=== PATIENT | male | born 1935 | race Caucasian/White ===

== ENCOUNTER 2018-01-18 01:53 | Inpatient (IN) | payer MEDICARE ==
[~2018-01-18] VITALS: Ht 162.6 cm; Wt 63.5 kg
[2018-01-18 02:10] VITALS: BP 154/75
--- NOTE | 2018-01-18 02:10 | NUR ---
GPS-RN ADMITTED A 82-Y/O MALE, ADMITTED FROM [facility]. PT IS ON 5150 HOLD FOR DTS AND GD. PER HOLD PATIENT REPORTS INCREASED FEELINGS OF ANXIETY AND DEPRESSION RELATED TO INTERPERSONAL PROBLEMS. PATIENT VERBALIZES SUICIDAL THOUGHTS BUT WILL NOT DISCLOSE A PLAN. PATIENT STATED "I HAVE NOTHING TO LIVE FOR, I WOULD RATHER BE ". UPON FACE TO FACE ASSESSMENT, PATIENT APPEARS TO BE ALERT, ORIENTED X4, DEPRESSED. DENIES SI/HI AT THIS TIME. NO ACUTE DISTRESS NOTED. INCONTINENT OF BOWEL AND BLADDER. NO COMPLAIN OF PAIN OR DISCOMFORT. AMBULATORY WITH ASSISTIVE DEVICE. BELONGINGS INVENTORIED AND CHECKED FOR CONTRABAND. REVIEWED PATIENT'S RIGHTS AND VERBALIZED UNDERSTANDING. PATIENT IS UNDER THE PSYCHIATRIC CARE OF DR. REYNA, ORDERS OBTAINED, AND UNDER THE MEDICAL CARE OF DR. LAMBERT, BOTH DOCTORS ARE AWARE OF THE ADMISSION. SKIN BODY ASSESSMENT DONE. MRSA SCREENING DONE. BED LOCKED AND PLACED IN LOWEST POSITION. ROOM SAFETY CHECKED. FALL PRECAUTIONS MAINTAINED. WILL CONTINUE TO MONITOR Q15MIN ROUNDS FOR SAFETY AND BEHAVIOR.
[2018-01-18] MEDS ORDERED: MAGNESIUM HYDROXIDE 30 ML UDC PO PRN (02:30)
[2018-01-18] MEDS ORDERED: ACETAMINOPHEN 325 MG TABLET PO PRN (02:30)
[2018-01-18] MEDS ORDERED: LORAZEPAM 0.5 MG TABLET PO PRN (02:30)
[2018-01-18] MEDS: TEMAZEPAM 7.5 MG CAPSULE PO PRN (02:45)
[2018-01-18] MEDS ORDERED: PSYL1PAC8 PO (05:45)
[2018-01-18] MEDS ORDERED: MELA5TAB PO (05:45)
[2018-01-18 08:00] VITALS: BP 176/85
[2018-01-18] MEDS ORDERED: hydrALAZINE HCL 25 MG TABLET PO PRN (11:30)
--- NOTE | 2018-01-18 14:55 | NUR ---
SAVANNAH attempted to contact pts son Nghia [phone] to discuss discharge plan but was unable to reach him and left a voicemail for callback.
--- NOTE | 2018-01-18 14:58 | NUR ---
INITIAL DISCHARGE PLAN: Patient wishes to be discharged home to [address], [address] but is uncertain if pts son will accept him back. SW attempted to contact pts son Nghia [phone] to discuss discharge plan but was unable to reach him and left a voicemail for callback. SAVANNAH will help form a safe and proper discharge in collaboration with MD and pts son.
--- NOTE | 2018-01-18 15:02 | NUR ---
Pts son Nghia [phone] contacted SW to discuss discharge plan and his concerns with pts mental health and substance use. Pts son reported that in the past month pt has attempted suicide twice and states that pts mental state in getting worse and does not trust him home alone. Pts son is currently looking for long-term placement for pt. Pts sons reported that his impression is that pt wants to truly kill himself. Pts son reports that pts alcohol consumption increases his suicide thoughts and he is not compliant with medication. Pts son states that pt goes from high to lows he goes from being really happy to wanting to kill himself. Pts son has asked SW to help place pt in a facility as he cannot return home. SW will help form a safe and proper discharge in collaboration with .
[2018-01-18 16:00] VITALS: BP 142/69
[2018-01-18 20:18] VITALS: BP 153/78
[2018-01-18] MEDS: MIRTAZAPINE 15 MG TABLET PO SCH (21:13)
[2018-01-19 00:13] LABS: APPEARANCE,URINE CLEAR (CLEAR); BILIRUBIN,URINE NEGATIVE (NEGATIVE); BLOOD, URINE NEGATIVE Ery/uL (NEGATIVE); COLOR,URINE YELLOW (YELLOW); KETONES,URINE NEGATIVE (NEGATIVE); LEUKOCYTE ESTERASE ,URINE NEGATIVE (NEGATIVE); NITRITE, URINE NEGATIVE (NEGATIVE); PROTEIN,URINE NEGATIVE (NEGATIVE); UGLUCOSE TRACE mg/dL (NEGATIVE); UROBILINOGEN,URINE 0.2 EU/dL (0.2)
[2018-01-19 00:19] LABS: BACTERIA,URINE None seen /HPF (None Seen); RBC,URINE NONE SEEN /HPF (0-2); SQUAMOUS EPITHELIAL CELL,UR Few /HPF (None Seen); WBC,URINE 0-2 /HPF (0-3)
[2018-01-19] MEDS: TEMAZEPAM 7.5 MG CAPSULE PO PRN (01:37)
[2018-01-19 08:00] VITALS: BP 129/65
[2018-01-19] MEDS: CARBAMAZEPINE 200 MG TABLET PO SCH ×2 (09:21→16:47)
[2018-01-19] MEDS: RIVASTIGMINE TARTRATE 1.5 MG CAPSULE PO SCH ×2 (09:21→16:47)
[2018-01-19 10:45] LABS: BASOPHILS % (AUTO) 0.9 % (0.0-2.0); EOSINOPHILS % (AUTO) 6.8 % (0.0-6.0); HEMATOCRIT 40 % (39-51); HEMOGLOBIN 13.8 g/dL (13.5-17.5); LYMPHOCYTES # (AUTO) 0.8 /CMM (0.8-4.8); LYMPHOCYTES % (AUTO) 27.2 % (20.0-44.0); MEAN CORPUSCULAR HEMOGLOBIN 32 PG (26.0-33.0); MEAN CORPUSCULAR HGB CONC 34 g/dl (31.0-36.0); MEAN CORPUSCULAR VOLUME 93 fL (80-96); MONOCYTES # (AUTO) 0.4 /CMM (0.1-1.30); MONOCYTES % (AUTO) 12.9 % (2.0-12.0); NEUTROPHILS # (AUTO) 1.6 /CMM (1.8-8.9); NEUTROPHILS % (AUTO) 52.2 % (43.0-81.0); PLATELET COUNT (AUTO) 152 /CMM (150-450); RDW COEFFICIENT OF VARIATION 13.2 (11.5-15.0); RED BLOOD CELL COUNT(AUTO) 4.34 MIL/uL (4.5-6.0); WHITE BLOOD COUNT (AUTO) 3.1 K/uL (4.3-11.0)
[2018-01-19 11:07] LABS: ALANINE AMINOTRANSFERASE 67 U/L (12-78); ALBUMIN 3.1 g/dL (3.4-5.0); ALKALINE PHOSPHATASE 63 U/L (46-116); ASPARTATE AMINOTRANSFERASE 46 U/L (15-37); BILIRUBIN,TOTAL 0.6 mg/dL (0.2-1.0); CALCIUM, SERUM 8.7 mg/dL (8.5-10.1); CARBON DIOXIDE 24 mmol/L (21-32); CHLORIDE 112 mmol/L (98-107); CREATININE 1.1 mg/dL (0.6-1.3); GLUCOSE 144 mg/dL (74-106); POTASSIUM 3.5 mmol/L (3.5-5.1); SODIUM SERUM 145 mmol/L (136-145); TOTAL PROTEIN, SERUM 5.9 g/dL (6.4-8.2); UREA NITROGEN, BLOOD 10 mg/dL (7-18)
[2018-01-19 11:10] LABS: THYROID STIMULATING HORMONE 4.831 uIU/mL (0.358-3.74)
[2018-01-19 11:16] LABS: CHOLESTEROL 144 mg/dL (<200); HDL CHOLESTEROL 58 mg/dL (40-60); LDL 79 mg/dL (0-99); TRIGLYCERIDES 92 mg/dL (30-150)
[2018-01-19 16:00] VITALS: BP 155/79
[2018-01-19 20:03] VITALS: BP 153/78
[2018-01-19] MEDS: MIRTAZAPINE 15 MG TABLET PO SCH (21:25)
[2018-01-19 22:32] VITALS: BP 140/72
[2018-01-20] MEDS ORDERED: Z GUARD REMEDY 4 OZ OINT TP PRN
[2018-01-20 08:18] VITALS: BP 139/68
[2018-01-20] MEDS: CARBAMAZEPINE 200 MG TABLET PO SCH ×2 (08:28→16:06)
[2018-01-20] MEDS: RIVASTIGMINE TARTRATE 1.5 MG CAPSULE PO SCH ×2 (08:28→16:06)
--- NOTE | 2018-01-20 08:29 | NUR ---
SAVANNAH faxed SNF referral to Yeimy admission coordinator at [facility] Address: [address], [place] [address] for review.
[2018-01-20] MEDS: Z GUARD REMEDY 4 OZ OINT TP SCH (09:43)
[2018-01-20 16:18] VITALS: BP 139/76
[2018-01-20 20:00] VITALS: BP 114/67
[2018-01-20] MEDS: MIRTAZAPINE 15 MG TABLET PO SCH (21:59)
--- NOTE | 2018-01-21 06:23 | NUR ---
GPS/RN PATIENT IS STILL SLEEPING AT THIS TIME, CALM AND COMFORTABLE, NO SIGNS OF DISTRESS NOTED, ALL NEEDS ATTENDED AT THIS TIME. WILL CONTINUE TO MONITOR.
[2018-01-21 08:00] VITALS: BP 110/61
--- NOTE | 2018-01-21 08:25 | NUR ---
Pts son/nephew Nghia [phone] came to visit pt during none visiting hours and came with a notarizer to have divorce papers signed by pt. SW explained to pts son/nephew that due to pt being on a legal hold for grave disability legally he is unable to sign any forms until he is out of the hospital. Pts son/nephew understood.
[2018-01-21] MEDS: RIVASTIGMINE TARTRATE 1.5 MG CAPSULE PO SCH ×2 (08:59→17:35)
[2018-01-21] MEDS: CARBAMAZEPINE 200 MG TABLET PO SCH ×2 (08:59→17:35)
[2018-01-21] MEDS: Z GUARD REMEDY 4 OZ OINT TP SCH (09:00)
--- NOTE | 2018-01-21 10:31 | NUR ---
Yeimy admission coordinator at [facility] Address: [address] [place] [address] contacted SW to inform her pt could not be accepted to facility due to pts history of suicidal ideations.
--- NOTE | 2018-01-21 10:32 | NUR ---
SAVANNAH faxed referral to Sarai construction project coordinator at [facility] Address: [address], [place], [place] [address] fax: [phone] for review.
--- NOTE | 2018-01-21 13:13 | NUR ---
Sarai children's program coordinator at [facility] Address: [address], [place] [address] contacted SW to inform her that pt was not accepted to their facility.
[2018-01-21 16:00] VITALS: BP 154/87
[2018-01-21 20:00] VITALS: BP 143/76
[2018-01-21] MEDS: MIRTAZAPINE 15 MG TABLET PO SCH (22:04)
[2018-01-22 08:00] VITALS: BP 132/75
[2018-01-22] MEDS: CARBAMAZEPINE 200 MG TABLET PO SCH ×2 (08:11→16:27)
[2018-01-22] MEDS: RIVASTIGMINE TARTRATE 1.5 MG CAPSULE PO SCH ×2 (08:11→16:27)
[2018-01-22] MEDS: Z GUARD REMEDY 4 OZ OINT TP SCH (09:56)
[2018-01-22 16:00] VITALS: BP 130/59
[2018-01-22 20:00] VITALS: BP_SYST 113; BP_SYST 124; BP_DIAS 68; BP_DIAS 70
[2018-01-22] MEDS: MIRTAZAPINE 15 MG TABLET PO SCH (21:16)
[2018-01-23] MEDS: RIVASTIGMINE TARTRATE 1.5 MG CAPSULE PO SCH ×2 (07:58→16:52)
[2018-01-23] MEDS: CARBAMAZEPINE 200 MG TABLET PO SCH ×2 (07:58→16:52)
[2018-01-23 08:00] VITALS: BP 136/76
[2018-01-23] MEDS: Z GUARD REMEDY 4 OZ OINT TP SCH (11:48)
[2018-01-23 16:00] VITALS: BP 141/78
[2018-01-23 19:57] VITALS: BP 132/76
[2018-01-23] MEDS: MIRTAZAPINE 15 MG TABLET PO SCH (21:31)
[2018-01-24] MEDS: TEMAZEPAM 7.5 MG CAPSULE PO PRN (00:21)
[2018-01-24 03:11] VITALS: BP 123/74
[2018-01-24 08:00] VITALS: BP 147/80
--- NOTE | 2018-01-24 09:12 | NUR ---
SAVANNAH faxed SNF referral to Mark Screen Repairer Crusher at [facility] Address: [address] [place] [address] for review.
[2018-01-24] MEDS: RIVASTIGMINE TARTRATE 1.5 MG CAPSULE PO SCH ×2 (09:19→16:43)
[2018-01-24] MEDS: CARBAMAZEPINE 200 MG TABLET PO SCH ×2 (09:19→16:43)
[2018-01-24] MEDS: Z GUARD REMEDY 4 OZ OINT TP SCH (09:47)
--- NOTE | 2018-01-24 09:48 | NUR ---
Mark Renovator Machine Operator at [facility] Address: [address] [place] [address] contacted SW to inform her pt was not accepted to their facility due to pt having no skilled needs. Mark has forwarded referral to [facility] ([facility]) [address] [address] for possible admission.
--- NOTE | 2018-01-24 11:30 | NUR ---
SW was contacted by Billie genetic coordinator at [facility] ([facility]) [address] [facility] [address] to state pt has been accepted to their facility.
--- NOTE | 2018-01-24 11:46 | NUR ---
WOUND CARE CONSULT: PT PRESENTS WITH RASH TO PERINEAL/GROIN AREAS, PRESENT ON ADMISSION. RECOMMENDATIONS MADE FOR SKIN PROTECTION AND CARE. DISCUSSED WITH NURSING STAFF. WILL SEE PRN. BAUTISTA IN AGREEMENT WITH PLAN OF CARE. CURRENT JSOTIN SCORE IS 16. Addendum: 01/24/18 at 1147 by EVA WARD WNDNU Amended: Links added.
[2018-01-24 16:00] VITALS: BP 145/72
[2018-01-24] MEDS: CLOTRIMAZOLE 1% 15 GM TUBE TP SCH (17:33)
[2018-01-24 20:53] VITALS: BP 141/68
[2018-01-24] MEDS: MIRTAZAPINE 15 MG TABLET PO SCH (21:31)
[2018-01-25 08:00] VITALS: BP 138/71
[2018-01-25] MEDS: CARBAMAZEPINE 200 MG TABLET PO SCH ×2 (10:38→17:35)
[2018-01-25] MEDS: RIVASTIGMINE TARTRATE 1.5 MG CAPSULE PO SCH ×2 (10:38→17:35)
[2018-01-25] MEDS: CLOTRIMAZOLE 1% 15 GM TUBE TP SCH ×2 (10:39→17:35)
[2018-01-25] MEDS: Z GUARD REMEDY 4 OZ OINT TP SCH (10:39)
[2018-01-25] MEDS: MAG HYDROX/AL HYDROX/SIMETH 30 ML UDC PO PRN ×2 (14:21→19:23)
[2018-01-25 16:00] VITALS: BP 123/55
--- NOTE | 2018-01-25 16:40 | NUR ---
68 year old male pt. adm. to [id number].alert and oriented x4,initially requesting norco for pain. Addendum: 01/25/18 at 1937 by JAZ BRANDT RN entry on wrong pt.
--- NOTE | 2018-01-25 18:00 | NUR ---
med recon nurse has put in home meds and call out to dr. lance to review. Addendum: 01/25/18 at 1937 by JAZ BRANDT RN entry on wrong pt.
--- NOTE | 2018-01-25 18:00 | NUR ---
pt. relates after lunch vomited sm. amt.states this has been going on for few days-says he has a blockage.given maalox.
--- NOTE | 2018-01-25 18:30 | NUR ---
skin assessment done and few scars on back from former back surgeries.mrsa smear done and photo of face done.pt. states when questioned is still a little suicidal. Addendum: 01/25/18 at 1936 by JAZ BRANDT RN entry on wrong pt.
--- NOTE | 2018-01-25 19:10 | NUR ---
endorsed to gillian. deyanira pt. needs maalox again.states he ate sm. amt. of dinner and vomited again.
--- NOTE | 2018-01-25 19:40 | NUR ---
GPS-RN REPORT GIVEN TO MANUEL FOR CONTINUITY OF CARE.
--- NOTE | 2018-01-25 19:45 | NUR ---
GPS RN NOTE, RECEIVED PATIENT AWAKE AND IN BED, NO S/S OR COMPLAINTS OF PAIN AT THIS TIME. PATIENT IS DISPLAYING NO S/S OF APPARENT DISTRESS AT THIS TIME. PATIENT BREATHING IS UNLABORED WITH EQUAL RISE AND FALL OF THE CHEST. PATIENT IS ALERT AND ORIENTED X 3 ON ROOM AIR WITH A SPO2 99 %. PATIENT IS MED COMPLIANT, CALM, COOPERATIVE, AND AMBULATES WITH WALKER INDEPENDENTLY. PATIENT DENIES SUICIDE IDEATIONS AND HOMICIDAL IDEATIONS AT THIS TIME. PATIENT ASSISTED WITH TURNING AND REPOSITIONING Q2HR AND PRN FOR COMFORT AND CIRCULATION. PATIENT HAS NO NEEDS AT THIS TIME. PATIENT EDUCATED ON THE USE OF THE CALL CASTRO. PATIENT BED SIDE RAILS UP X2 FOR SAFETY, BED IS LOCKED, AND LOW. WILL CONTINUE TO MONITOR AND MAINTAIN SAFETY Q15MIN WITH THE HELP OF STAFF.
[2018-01-25 20:31] VITALS: BP 151/71
[2018-01-25] MEDS: MIRTAZAPINE 15 MG TABLET PO SCH (21:02)
[2018-01-26 08:00] VITALS: BP 125/73
[2018-01-26] MEDS: Z GUARD REMEDY 4 OZ OINT TP SCH (10:16)
[2018-01-26] MEDS: CLOTRIMAZOLE 1% 15 GM TUBE TP SCH (10:16)
[2018-01-26] MEDS: RIVASTIGMINE TARTRATE 1.5 MG CAPSULE PO SCH (10:16)
[2018-01-26] MEDS: CARBAMAZEPINE 200 MG TABLET PO SCH (10:16)
--- NOTE | 2018-01-26 13:44 | NUR ---
DISCHARGE NOTE: Pt was discharged at [address] [facility] [facility] (SNF) [address] [address] via [facility] ambulance trip #[id number]. Pts nephew Nghia [phone] was notified and agreed with discharge plan. Pts mood was pleasant with congruent affect. Pt denied suicidal/homicidal ideations and denied visual/auditory hallucinations. Patient was provided referrals to address his alcohol use. Patient was referred to [facility]: [address] [place] [address] and was encouraged to report for an Intake on January before 5:00pm. Additional resources included [facility] [address] [place] [address] and [facility] [address] [place] [address] . Pt will be under the care of Psychiatrist: Dr. Hans Freeman [address] [place] [address] [phone] and Aircraft Part Assembler: Dr. Ángel Rodrigez [address] [phone] Phone 1: . The multidisciplinary exitcare form was done, printed, signed, and given to the patient.
--- NOTE | 2018-01-26 14:00 | NUR ---
DISCHARGE GPS PT. WAS DISCHARGED TO [facility] IN STABLE CONDITION BY AMBULANCE. REPORT WAS GIVEN TO KATY NURSE VIA PHONE. PT. IS A&OX3-4. DISCHARGE INSTRUCTIONS WERE GIVEN WITH EDUCATION AND PT. VERBALIZED UNDERSTANDING. BELONGINGS LIST WAS CHECKED AND SIGNED. PRESCRIPTION WAS GIVEN TO PT. WITH EDUCATION AND PT. VERBALIZED UNDERSTANDING. REPORT WAS GIVEN TO AMBULANCE, AND DISCHARGE PACKET. PT.'S NEPHEW WAS NOTIFIED OF PT. TRANSFER TODAY.
== END 2018-01-26 14:00 | DRG 885 ==
LOC: GPS 01:53
PROVIDERS: ADMIT Psychiatry & Neurology Psychiatry; ATTEND Psychiatry & Neurology Psychiatry
DX: F31.30 Bipolar disorder, current episode depressed, mild or moderate severity, unspecified (principal); F29 Unspecified psychosis not due to a substance or known physiological condition; E78.5 Hyperlipidemia, unspecified; F10.20 Alcohol dependence, uncomplicated; F41.9 Anxiety disorder, unspecified; F17.200 Nicotine dependence, unspecified, uncomplicated
CPT/HCPCS: 36415; 80053-TC; 80061-TC; 81000-TC; 83540-TC; 84443-TC; 85025-TC; 87081-TC